=== PATIENT | female | born 1970 | race Caucasian/White ===

== ENCOUNTER 2018-10-26 17:20 | Emergency (ER) | payer OTHER ==
--- OUTSIDE RECORDS SUMMARY | 2018-10-26 17:24 | XMS REPORT ---
:1970 [facility] Address [address] [place] [address] [address]. [address] [place] [address] Care Team Providers Name Role Phone Unavailable Unavailable Unavailable Problems This patient has no known problems. Allergies, Adverse Reactions, Alerts This patient has no known allergies or adverse reactions. Medications This patient has no known medications.
[2018-10-26 20:00] LABS: Urine Blood NEGATIVE (NEG); Urine Glucose NEGATIVE (NEG); Urine Protein TRACE (NEG); Urine Specific Gravity 1.025 (1.005-1.030)
[2018-10-26 20:05] LABS: Barbiturates NEGATIVE (NEGATIVE); Benzodiazepines NEGATIVE (NEGATIVE); Cocaine NEGATIVE (NEGATIVE); METHAMPHETAM NEGATIVE (NEGATIVE); Methadone NEGATIVE (NEGATIVE); Opiates NEGATIVE (NEGATIVE); Phencyclidine NEGATIVE (NEGATIVE); THC Cannibis NEGATIVE (NEGATIVE)
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
[2018-10-26] MEDS ORDERED: AZITHROMYCIN 250 MG TAB ONE (22:09)
[2018-10-26] MEDS ORDERED: CEFTRIAXONE 250 MG/VIAL ONE (22:09)
[2018-10-26] MEDS ORDERED: metroNIDAZOLE 500 MG TABLET ONE (22:09)
[2018-10-26] MEDS ORDERED: LIDOCAINE 1% MPF 2 ML AMPULE ONE (22:09)
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
== END 2018-10-26 22:57 | disposition home or self-care (01) ==
LOC: ER 17:20
DX: H11.32 Conjunctival hemorrhage, left eye (principal); Y04.8XXA Assault by other bodily force, initial encounter; Y93.89 Activity, other specified; Y92.009 Unspecified place in unspecified non-institutional (private) residence as the place of occurrence of the external cause; Z88.8 Allergy status to other drugs, medicaments and biological substances; F17.210 Nicotine dependence, cigarettes, uncomplicated; F31.9 Bipolar disorder, unspecified
CPT/HCPCS: 70450; 70486; 71045; 71100; 72125; 76377; 80307 ×8; 81003; 81025; 96372; 99284; J0696; J2001